=== PATIENT | male | born 1995 | race Caucasian/White ===

== ENCOUNTER 2017-03-01 19:11 | Emergency (ER) | payer SELFPAY ==
[~2017-03-01] VITALS: Ht 185.4 cm; Wt 99.8 kg
[~2017-03-01 19:11] MED LIST: CEPH500C PO; CYCL10TA9 PO; HYDR1CAP2 PO; NAPR-243 PO; PRD20T PO
[2017-03-01] MEDS ORDERED: NS IV 1000 ML 1,000 ML IV STA (19:31)
[2017-03-01] MEDS ORDERED: FAMOTIDINE 20MG/2ML IV (PEPCID) IV STA (19:31)
[2017-03-01] MEDS ORDERED: ANTACID SUSP 30 ML UDC (MYLANTA) PO ONE (19:45)
[2017-03-01] MEDS ORDERED: LIDOCAINE 2% VISCOUS 15 ML UDC PO ONE (19:45)
--- NOTE | 2017-03-01 19:47 | ED Abdominal Pain ---
General Chief Complaint: Abdominal/GI Problems Stated Complaint: ABDOMINAL PAIN/DIARRHEA Nursing Triage Note: Pt c/o epigastric pain x 2 days. Sepsis Screen: No Definite Risk Source of Information: Patient Exam Limitations: No Limitations History of Present Illness Time Seen By Provider: 19:30 Initial Comments Here with report of epigastric pain over the last couple of days. States that this is worse with received food. He did start a new job which she was at [employer] and had to leave due to the pain. They sent him here for evaluation. He has been taking Pepto-Bismol with some success. Denies vomiting or diarrhea currently. Apparently he has had some diarrhea. No other concerns noted or reported. Timing/Duration: 2-3 Days, Intermittent Severity/Quality: Moderate, Burning Location: Epigastric Radiation: No Radiation Activities at Onset: None Modifying Factors: Worsens With Eating Associated Symptoms: No Back Pain, No Chest Pain, No Diaphoresis, No Fever/ Chills, No Shortness of Air, No Swelling/Mass in Abdomen, No Weakness Allergies and Home Medications Allergies Coded Allergies: No Known Drug Allergies (Unverified , 03/11/10) Home Medications Cyclobenzaprine Hcl 10 Mg Tablet, 1 EACH PO Q8H PRN for PAIN, #10 Ref 0 Prescribed by: KEON VORA on 05/27/14 1523 Naproxen 500 Mg Tablet, 1 EACH PO TID PRN PRN for PAIN, #20 Ref 0 Prescribed by: KEON VORA on 05/27/14 1523 Prednisone 20 Mg Tab, 2 TAB PO DAILY, #10 Ref 0 Prescribed by: KEON VORA on 05/27/14 1523 Review of Systems Constitutional: see HPI, No chills, No fever EENTM: No Symptoms Reported Respiratory: No Symptoms Reported Cardiovascular: No Symptoms Reported Gastrointestinal: See HPI, Abdominal Pain, Diarrhea, Denies Nausea, Denies Rectal Bleeding, Denies Vomiting Genitourinary: No Symptoms Reported Musculoskeletal: no symptoms reported All Other Systems Reviewed Negative Unless Noted: Yes Past Dxvuphd-Nusqba-Hmjoyl Hx Patient Social History Alcohol Use: Occasionally Uses Recreational Drug Use: No Smoking Status: Current Everyday Smoker Type Used: Cigarettes 2nd Hand Smoke Exposure: No Recent Foreign Travel: No Contact w/Someone Who Travel: No Recent Infectious Disease Expo: No Immunizations Up To Date Tetanus Booster (TDap): Less than 5yrs Surgeries HX Surgeries: No Respiratory Hx Respiratory Disorders: Yes Respiratory Disorders: Asthma Cardiovascular Hx Cardiac Disorders: No Neurological Hx Neurological Disorders: No Reproductive System Hx Reproductive Disorders: No Genitourinary Hx Genitourinary Disorders: No Gastrointestinal Hx Gastrointestinal Disorders: No Musculoskeletal Hx Musculoskeletal Disorders: No Endocrine Hx Endocrine Disorders: No HEENT HX ENT Disorders: No Cancer Hx Cancer: No Psychosocial Hx Psychiatric Problems: Yes Behavioral Health Disorders: ADD/ADHD Integumentary HX Skin/Integumentary Disorder: No Blood Transfusions Hx Blood Disorders: No Reviewed Nursing Assessment Reviewed/Agree w Nursing PMH: Yes Family Medical History Significant Family History: No Pertinent Family Hx Family Medial History: Patient reports no known family medical history. Physical Exam Vital Signs VS - Last 72 Hours, by Label 03/01/17 19:25 Temp 98.1 Pulse 87 Resp 18 B/P (MAP) 149/73 Pulse Ox 99 O2 Delivery Room Air Capillary Refill : Less Than 3 Seconds General Appearance: WD/WN, no apparent distress HEENT: PERRL/EOMI, pharynx normal Neck: full range of motion, supple Respiratory: lungs clear, normal breath sounds Cardiovascular: regular rate, rhythm, no murmur Peripheral Pulses: 2+ Dorsalis Pedis (R), 2+ Left Dors-Pedis (L), 2+ Radial Pulses (R), 2+ Radial Pulses (L) Gastrointestinal: soft, No guarding, No rebound, tenderness (mild epigastric tenderness) Extremities: non-tender, normal inspection Back: normal inspection, no CVA tenderness, no vertebral tenderness Neurologic/Psychiatric: alert, oriented x 3 Skin: normal color, warm/dry Progress/Results/Core Measures Results/Orders Lab Results Laboratory Tests Test 03/01/17 19:32 Range/Units White Blood Count 7.4 4.3-11.0 10^3/uL Red Blood Count 4.68 4.35-5.85 10^6/uL Hemoglobin 13.8 13.3-17.7 G/DL Hematocrit 40 40-54 % Mean Corpuscular Volume 86 80-99 FL Mean Corpuscular Hemoglobin 30 25-34 PG Mean Corpuscular Hemoglobin Concent 35 32-36 G/DL Red Cell Distribution Width 12.7 10.0-14.5 % Platelet Count 263 130-400 10^3/uL Mean Platelet Volume 11.0 H 7.4-10.4 FL Neutrophils (%) (Auto) 50 42-75 % Lymphocytes (%) (Auto) 41 12-44 % Monocytes (%) (Auto) 7 0-12 % Eosinophils (%) (Auto) 2 0-10 % Basophils (%) (Auto) 0 0-10 % Neutrophils # (Auto) 3.7 1.8-7.8 X 10^3 Lymphocytes # (Auto) 3.1 1.0-4.0 X 10^3 Monocytes # (Auto) 0.5 0.0-1.0 X 10^3 Eosinophils # (Auto) 0.1 0.0-0.3 10^3/uL Basophils # (Auto) 0.0 0.0-0.1 10^3/uL Sodium Level 140 135-145 MMOL/L Potassium Level 3.8 3.6-5.0 MMOL/L Chloride Level 105 98-107 MMOL/L Carbon Dioxide Level 21 21-32 MMOL/L Anion Gap 14 5-14 MMOL/L Blood Urea Nitrogen 17 7-18 MG/DL Creatinine 0.92 0.60-1.30 MG/DL Estimat Glomerular Filtration Rate > 60 BUN/Creatinine Ratio 18 0-20 Glucose Level 82 70-105 MG/DL Calcium Level 9.5 8.5-10.1 MG/DL Total Bilirubin 0.5 0.1-1.0 MG/DL Aspartate Amino Transf (AST/SGOT) 24 5-34 U/L Alanine Aminotransferase (ALT/SGPT) 22 0-55 U/L Alkaline Phosphatase 60 40-136 U/L Total Protein 7.5 6.4-8.2 GM/DL Albumin 4.4 3.2-4.5 GM/DL Amylase Level 36 25-125 U/L Lipase 15 8-78 U/L My Orders Orders - PAVEL BRYAN MD Amylase (03/01/17 19:31) Cbc With Automated Diff (03/01/17 19:31) Comprehensive Metabolic Panel (03/01/17 19:31) Lipase (03/01/17 19:31) Lidocaine 2% Viscous 15 Ml (Xylocaine Vi (03/01/17 19:45) Ns Iv 1000 Ml (Sodium Chloride 0.9%) (03/01/17 19:31) Antacid Suspension (Mylanta Suspension (03/01/17 19:45) Famotidine Injection (Pepcid Injection) (03/01/17 19:31) Saline Lock/Iv-Start (03/01/17 19:31) Medications Given in ED Current Medications Medications Dose Ordered Sig/Otilio Route Start Time Stop Time Status Last Admin Dose Admin Al Hydrox/Mg Hydrox/Simethicone 30 ml ONCE ONCE PO 03/01/17 19:45 03/01/17 19:46 DC 03/01/17 19:38 30 ML Lidocaine HCl 15 ml ONCE ONCE PO 03/01/17 19:45 03/01/17 19:46 DC 03/01/17 19:38 15 ML Vital Signs/I&O Vital Sign - Last 12Hours 03/01/17 19:25 Temp 98.1 Pulse 87 Resp 18 B/P (MAP) 149/73 Pulse Ox 99 O2 Delivery Room Air Blood Pressure Mean: 98 Progress Note : Progress Note Seen and evaluated. IV, labs, normal saline 1 L bolus, Pepcid 20 mg IV and GI cocktail ordered. Monitor patient. 2114: Patient is feeling much better. Labs reviewed. No significant findings currently. Discharged home with return precautions. Patient verbalize understanding instructions and agreement with plan. Departure Impression Impression: Primary Impression: Epigastric abdominal pain Disposition: HOME, SELF-CARE Condition: Improved Departure-Patient Inst. Decision time for Depature: 21:12 Referrals: NO,LOCAL PHYSICIAN (PCP/Family) Primary Care Physician Patient Instructions: Acute Abdomen (Belly Pain), Adult (DC), Gastritis (DC) Add. Discharge Instructions: All discharge instructions reviewed with patient and/or family. Voiced understanding. Eat a light diet. You may take Pepcid or the generic famotidine 20 mg twice daily for the next 7 days and then daily thereafter as needed for stomach upset. You should follow up with your doctor for recheck and further evaluation next week if not improved. Return for worse pain, fever, vomiting, weakness, breathing problems, vomiting blood, blood in your stool or other concerns as needed. Drink plenty of fluids. Avoid foods or other substances that irritate the stomach such as alcohol or spicy foods. Work/School Note: Work Release Form Date Seen in the Emergency Department: Mar 01, 2017 Return to Work: Mar 04, 2017 Restrictions: No Restrictions PAVEL BRYAN MD Mar 01, 2017 19:47
[2017-03-01 20:23] LABS: BASOPHILS % (AUTO) 0 % (0-10); EOSINOPHILS # (AUTO) 0.1 10^3/uL (0.0-0.3); EOSINOPHILS % (AUTO) 2 % (0-10); LYMPHOCYTES # (AUTO) 3.1 X 10^3 (1.0-4.0); LYMPHOCYTES % (AUTO) 41 % (12-44); MEAN CORPUSCULAR HEMOGLOBIN 30 PG (25-34); MEAN CORPUSCULAR HGB CONC 35 G/DL (32-36); MEAN CORPUSCULAR VOLUME 86 FL (80-99); MONOCYTES # (AUTO) 0.5 X 10^3 (0.0-1.0); MONOCYTES % (AUTO) 7 % (0-12); NEUTROPHILS # (AUTO) 3.7 X 10^3 (1.8-7.8); NEUTROPHILS % (AUTO) 50 % (42-75); PLATELET COUNT 263 10^3/uL (130-400); RED BLOOD COUNT 4.68 10^6/uL (4.35-5.85); RED CELL DISTRIBUTION WIDTH 12.7 % (10.0-14.5); WHITE BLOOD COUNT 7.4 10^3/uL (4.3-11.0)
[2017-03-01 20:43] LABS: ALANINE AMINOTRANSFERASE 22 U/L (0-55); ALBUMIN 4.4 GM/DL (3.2-4.5); AMYLASE 36 U/L (25-125); ANION GAP 14 MMOL/L (5-14); ASPARTATE AMINO TRANSFERASE 24 U/L (5-34); BILIRUBIN,TOTAL 0.5 MG/DL (0.1-1.0); BLOOD UREA NITROGEN 17 MG/DL (7-18); BUN/CREATININE RATIO 18 (0-20); CALCIUM 9.5 MG/DL (8.5-10.1); CARBON DIOXIDE 21 MMOL/L (21-32); CHLORIDE 105 MMOL/L (98-107); CREATININE SERUM 0.92 MG/DL (0.60-1.30); GFR ESTIMATED > 60; GLUCOSE 82 MG/DL (70-105); HEMOLYSIS 9 (-100-29); ICTERUS 0.7 (-100-1.9); LIPASE 15 U/L (8-78); LIPEMIA 5 (-100-49); POTASSIUM 3.8 MMOL/L (3.6-5.0); SODIUM 140 MMOL/L (135-145); TOTAL PROTEIN 7.5 GM/DL (6.4-8.2)
[2017-03-01 21:31] VITALS: BP 122/81
== END 2017-03-01 21:30 | disposition home or self-care (01) ==
LOC: EDUNIT# 19:11 → ER 19:17
DX: R10.13 Epigastric pain (principal); J45.909 Unspecified asthma, uncomplicated; F17.210 Nicotine dependence, cigarettes, uncomplicated
CPT/HCPCS: 36415; 80053; 82150; 83690; 85025

== ENCOUNTER 2019-11-01 22:53 | Emergency (ER) | payer SELFPAY ==
--- NOTE | 2019-11-01 23:12 | NUR ---
PT NAME CALLED FOR TRIAGE, NO ONE PRESENTED TO NURSING STAFF. NO ONE PRESENT IN WAITING ROOM. REGISTRATION NOT NOTIFIED OF PT LEAVING.
== END 2019-11-01 23:12 | disposition left against medical advice (07) ==
LOC: EDUNIT# 22:53 → ER 22:55
DX: S91.312A Laceration without foreign body, left foot, initial encounter (principal); X58.XXXA Exposure to other specified factors, initial encounter

== ENCOUNTER 2020-12-25 06:37 | Emergency (ER) | payer SELFPAY ==
[~2020-12-25] VITALS: Ht 182 cm; Wt 95.2 kg
[2020-12-25] MEDS ORDERED: KETOROLAC 60 MG/2 ML VIAL IM STA (06:58)
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
[2020-12-25 08:00] VITALS: BP 132/75
--- NOTE | 2020-12-25 08:15 | Diagnostic Imaging Report ---
Right forearm 711 INDICATION: Forearm pain AP and lateral views were obtained. There are no prior studies available for comparison. There is no fracture, dislocation or acute bony abnormality evident. The radiocarpal and elbow joints are well maintained. The soft tissues are unremarkable. IMPRESSION: There is no evidence for an acute bony abnormality. Dictated by: Dictated on workstation # [id number]
== END 2020-12-25 07:59 | disposition home or self-care (01) ==
LOC: EDUNIT# 06:37 → ER 06:43
DX: S61.210A Laceration without foreign body of right index finger without damage to nail, initial encounter (principal); S61.216A Laceration without foreign body of right little finger without damage to nail, initial encounter; S50.11XA Contusion of right forearm, initial encounter; J45.909 Unspecified asthma, uncomplicated; F17.210 Nicotine dependence, cigarettes, uncomplicated; Z79.52 Long term (current) use of systemic steroids; Y04.8XXA Assault by other bodily force, initial encounter
CPT/HCPCS: 73090; 96372

== ENCOUNTER 2021-02-17 00:21 | Emergency (ER) | payer SELFPAY ==
[~2021-02-17] VITALS: Ht 182.9 cm; Wt 95.2 kg
[2021-02-17] MEDS ORDERED: CEPH500T PO (00:45)
--- NOTE | 2021-02-17 00:45 | ED Integumentary General ---
General Chief Complaint: Bite-Animal/Human/Insect Stated Complaint: POSS SPIDER BITE ON LEFT ARM Source: patient Exam Limitations: no limitations History of Present Illness Date Seen by Provider: Feb 17, 2021 Time Seen by Provider: 00:34 Initial Comments Patient presents ER by private conveyance with chief complaint yesterday while moving a palate he felt something bite him on the left forearm. Today it has become festering, draining serous fluid and painful. He is not having any fevers chills cough shortness of air or nausea. No significant medical history. Allergies and Home Medications Allergies Coded Allergies: No Known Drug Allergies (Unverified , 03/11/10) Home Medications Cephalexin 500 Mg Tablet, 500 MG PO QID Prescribed by: LESA FOX on 02/17/21 0045 Cyclobenzaprine Hcl 10 Mg Tablet, 1 EACH PO Q8H PRN for PAIN Prescribed by: KEON VORA on 05/27/14 1523 Naproxen 500 Mg Tablet, 1 EACH PO TID PRN PRN for PAIN Prescribed by: KEON VORA on 05/27/14 1523 Prednisone 20 Mg Tab, 2 TAB PO DAILY Prescribed by: KEON VORA on 05/27/14 1523 Patient Home Medication List Home Medication List Reviewed: Yes Review of Systems Review of Systems Constitutional: No chills, No diaphoresis EENTM: No ear discharge, No ear pain Respiratory: No cough, No short of breath Cardiovascular: No chest pain, No edema Gastrointestinal: No abdominal pain, No nausea, No vomiting Genitourinary: No discharge, No dysuria All Other Systems Reviewed Negative Unless Noted: Yes Past Sfmzdhb-Mqmgtz-Fhkhxv Hx Patient Social History Alcohol Use: Occasionally Uses Alcohol Beverage of Choice: Beer Smoking Status: Current Everyday Smoker Type Used: Cigarettes 2nd Hand Smoke Exposure: No Immunizations Up To Date Tetanus Booster (TDap): Less than 5yrs Past Medical History Surgeries: No Respiratory: Yes Asthma Cardiac: No Neurological: No Reproductive Disorders: No Gastrointestinal: No Musculoskeletal: No Endocrine: No Cancer: No Psychosocial: Yes ADD/ADHD Integumentary: No Blood Disorders: No Family Medical History Patient reports no known family medical history. No Pertinent Family Hx Physical Exam Vital Signs Vital Signs - First Documented 02/17/21 00:29 Temp 35.4 Pulse 83 Resp 16 B/P (MAP) 177/88 (117) Pulse Ox 100 O2 Delivery Room Air Capillary Refill : General Appearance: WD/WN, no apparent distress HEENT: PERRL/EOMI, pharynx normal Neck: full range of motion, normal inspection Cardiovascular: regular rate, rhythm, no edema Respiratory: no respiratory distress, no accessory muscle use Skin: other (Round 1 cm ulcer with serous fluid and a small necrotic center with no induration or fluctuance. Erythematous base and surrounding area about 2 to 3 cm diameter irregular border. On the left forearm dorsally) Progress/Results/Core Measures Results/Orders Vital Signs/I&O 02/17/21 02/17/21 00:29 00:51 Temp 35.4 35.4 Pulse 83 83 Resp 16 16 B/P (MAP) 177/88 (117) 177/88 (117) Pulse Ox 100 100 O2 Delivery Room Air Progress Progress Note : Time: 01:10 Progress Note The wound appears to be draining on its own. Secondarily infected so we will pu t him on Keflex and give him return precautions. Patient verbalized understanding Departure Impression Primary Impression: Arthropod bite Qualified Codes: W57.XXXA - Bitten or stung by nonvenomous insect and other nonvenomous arthropods, initial encounter Disposition: 01 HOME, SELF-CARE Condition: Stable Departure-Patient Inst. Decision time for Depature: 00:43 Referrals: NO,LOCAL PHYSICIAN (PCP/Family) Primary Care Physician Patient Instructions: Insect Bites and Stings (DC), Spider Bites Add. Discharge Instructions: Keep the skin clean with regular soap and water. If you are going to be in a environment where it might get soiled and you should put a Band-Aid on it. Do not use hydrogen peroxide, alcohol, iodine or chlorhexidine as this will delay wound healing. Cephalexin 1 capsule 4 times a day for the next week. Expect to see improvement over the next 3 to 4 days. Return to the ER promptly if you see redness going up beyond the level of your shoulder or you are having numbness and tingling in your fingers. All discharge instructions reviewed with patient and/or family. Voiced understanding. Scripts Cephalexin (Cephalexin) 500 Mg Tablet 500 MG PO QID for 7 Days, #28 TAB 0 Refills Prov: LESA FOX 02/17/21 Work/School Note: Work Release Form Date Seen in the Emergency Department: Feb 17, 2021 Return to Work: Feb 17, 2021 Restrictions: No Restrictions LESA FOX Feb 17, 2021 00:45
[2021-02-17 00:51] VITALS: BP 177/88
== END 2021-02-17 00:51 | disposition home or self-care (01) ==
LOC: EDUNIT# 00:21 → ER 00:26
DX: S50.862A Insect bite (nonvenomous) of left forearm, initial encounter (principal); J45.909 Unspecified asthma, uncomplicated; F17.210 Nicotine dependence, cigarettes, uncomplicated; W57.XXXA Bitten or stung by nonvenomous insect and other nonvenomous arthropods, initial encounter
CPT/HCPCS: 99283

== ENCOUNTER 2021-04-10 18:11 | Emergency (ER) | payer SELFPAY ==
[~2021-04-10] VITALS: Ht 182.9 cm; Wt 88.9 kg
[~2021-04-10 18:11] MED LIST changes: +CEPH500T PO
[2021-04-10 18:15] VITALS: BP 128/79
[2021-04-10] MEDS ORDERED: DOXY100T2 PO (18:56)
--- NOTE | 2021-04-10 18:56 | ED Integumentary General ---
General Chief Complaint: Skin/Wound Problems Stated Complaint: SORES ON L ARM Nursing Triage Note: PT ARRIVED BY PRIVATE VEHICLE WITH CHIEF COMPLAINT OF SORES/WOUNDS. PT WAS ALERT, ORIENTED X 4 AND AMBULATORY. PT'S VITALS WERE DONE ON ARRIVAL. PT STATED THAT WOKE UP SATURDAY AFTERNOON WITH SORES ON LEFT ARM. PT HAS 3 SORES ON LEFT ARM. PT STATED FAMILY SAID TO GET IT LOOKED AT TO CHECK FOR MRSA. PT IS NOT ALLERGIC TO MEDICATIONS. PT'S ONLY PMH IS ADHD. Source: patient Exam Limitations: no limitations History of Present Illness Date Seen by Provider: Apr 10, 2021 Time Seen by Provider: 18:54 Initial Comments To ER with reports of 3 sores on his left arm. Timing/Duration: constant Severity: moderate Location: extremities Possible Cause: no cause identified Associated Symptoms: denies symptoms Allergies and Home Medications Allergies Coded Allergies: No Known Drug Allergies (Unverified , 03/11/10) Home Medications Cephalexin 500 Mg Tablet, 500 MG PO QID Prescribed by: LESA FOX on 02/17/21 0045 Cyclobenzaprine Hcl 10 Mg Tablet, 1 EACH PO Q8H PRN for PAIN Prescribed by: KEON VORA on 05/27/14 1523 Naproxen 500 Mg Tablet, 1 EACH PO TID PRN PRN for PAIN Prescribed by: KEON VORA on 05/27/14 1523 Prednisone 20 Mg Tab, 2 TAB PO DAILY Prescribed by: KEON VORA on 05/27/14 1523 Patient Home Medication List Home Medication List Reviewed: Yes Review of Systems Review of Systems Constitutional: see HPI EENTM: see HPI Respiratory: no symptoms reported Cardiovascular: no symptoms reported Genitourinary: no symptoms reported Musculoskeletal: no symptoms reported Skin: see HPI Psychiatric/Neurological: No Symptoms Reported Endocrine: No Symptoms Reported Hematologic/Lymphatic: No Symptoms Reported Past Crkovct-Gxgexl-Deegpc Hx Patient Social History Tobacco Use?: Yes Tobacco type used: Cigarettes Smoking Status: Current Everyday Smoker Substance use?: No Additional substance use comme: FORMER [employer] USER Alcohol Use?: No Pt feels they are or have been: No Immunizations Up To Date Tetanus Booster (TDap): Less than 5yrs Seasonal Allergies Seasonal Allergies: No Past Medical History Surgeries: No Respiratory: Yes Asthma Cardiac: No Neurological: No Reproductive Disorders: No Genitourinary: No Gastrointestinal: No Musculoskeletal: No Endocrine: No HEENT: No Cancer: No Psychosocial: Yes ADD/ADHD Integumentary: No Blood Disorders: No Family Medical History Patient reports no known family medical history. No Pertinent Family Hx Physical Exam Vital Signs Vital Signs - First Documented 04/10/21 18:15 Temp 36.6 Pulse 90 Resp 18 B/P (MAP) 128/79 (95) Pulse Ox 100 O2 Delivery Room Air Capillary Refill : Less Than 3 Seconds General Appearance: WD/WN, no apparent distress HEENT: PERRL/EOMI, normal ENT inspection Neck: non-tender, full range of motion Respiratory: no respiratory distress, no accessory muscle use Neurologic/Psychiatric: alert, normal mood/affect, oriented x 3 Skin: normal color, warm/dry Skin Problem Character: other (All ulcers with slight surrounding erythema) Progress/Results/Core Measures Results/Orders Vital Signs/I&O 04/10/21 18:15 Temp 36.6 Pulse 90 Resp 18 B/P (MAP) 128/79 (95) Pulse Ox 100 O2 Delivery Room Air Blood Pressure Mean: 95 Departure Impression Primary Impression: Soft tissue infection Disposition: 01 HOME, SELF-CARE Condition: Stable Departure-Patient Inst. Decision time for Depature: 18:55 Referrals: NO,LOCAL PHYSICIAN (PCP/Family) Primary Care Physician Patient Instructions: Wound Infection Scripts Doxycycline Hyclate (Doxycycline Hyclate) 100 Mg Tablet 100 MG PO BID, #20 TAB 0 Refills Prov: NAZARIO HAILE APRN 04/10/21 NAZARIO HAILE APRN Apr 10, 2021 18:56
[2021-04-10] MEDS ORDERED: DOXYCYCLINE 100 MG (VIBRAMYCIN) TABLET PO SCH (19:00)
[2021-04-10] MEDS ORDERED: MUPIROCIN 2% OINT 22 GM (BACTROBAN) TUBE TOP SCH (21:00)
== END 2021-04-10 19:15 | disposition home or self-care (01) ==
LOC: EDUNIT# 18:11 → ER 18:12
DX: L08.9 Local infection of the skin and subcutaneous tissue, unspecified (principal); L98.499 Non-pressure chronic ulcer of skin of other sites with unspecified severity; J45.909 Unspecified asthma, uncomplicated; F17.210 Nicotine dependence, cigarettes, uncomplicated; Z79.52 Long term (current) use of systemic steroids
CPT/HCPCS: 99283